=== PATIENT | male | born 1970 | race Caucasian/White ===

== ENCOUNTER 2017-11-09 09:17 | Emergency (ER) | payer MEDICAID ==
[~2017-11-09] VITALS: Ht 175.3 cm; Wt 90.8 kg
[2017-11-09 11:37] VITALS: BP 140/84
== END 2017-11-09 11:37 | disposition home or self-care (01) ==
LOC: ED 09:17
DX: J06.9 Acute upper respiratory infection, unspecified (principal)
CPT/HCPCS: J1885; Q0162